=== PATIENT | male | born 1955 | race Hispanic/Latino ===

== ENCOUNTER 2016-08-14 08:30 | Emergency (ER) | payer MEDICAID ==
--- NOTE | 2016-08-14 09:03 | ER PHYSICIAN DOCUMENTATION ---
Physician Documentation [facility] Name:Jorge Gómez Age:61 yrs Sex:Male :1955 Arrival Date:08/14/2016 Time:08:30 Bed6 Private MD: Iggy Huerta Disposition: 08/14/16 08:55 Discharged to Home/Self Care. Impression: Bronchiolitis. - Condition is Good. - Discharge Instructions: BRONCHITIS, Abx Tx (Adult). - Prescriptions for Prednisone 20 mg Oral Tablet - take 2 tablet by ORAL route once daily for 5 days; 10 tablet. - Medical Reconciliation form form. - Follow up: Private Physician; When: 4- 6 days; Reason: Continuance of care. - Problem is new. - Symptoms have improved. HPI: 08/14 09:00 This 61 yrs old Male presents to ER via Walk In with complaints of Leg Pain - jm Left Leg Pain. 09:00 The patient presents with an abrasion. The complaints affect the left sims. Onset: The jm symptom(s)/episode began/occurred 2 week(s) ago. Pt banged his sims about 2 weeks ago and had some swelling there. He noticed that there was some bruising around his ankle and wanted to make sure he didn't have a blood blot. On an unrelated note, pt has a cough for 2 weeks that wont go away. No fever. No phloem . Historical: - Allergies: No known drug Allergies; - Home Meds: 1. None - PMHx: sinus infections; KIDNEY STONES; - PSHx: cystoscopy; urethral stent placement; LITHOTRIPSY; - Tetanus: > 10 years. - Ebola Screening: : Patient negative for fever greater than or equal to 101.5 degrees Fahrenheit, and additional compatible Ebola Virus Disease symptoms. Patient denies exposure to infectious person. Patient denies travel to an Ebola-affected area in the 21 days before illness onset. . - Immunization history: Flu Vaccine None. - Social history: Smoking status: Patient states was never smoker of tobacco. Patient uses marijuana. ROS: 09:00 Constitutional: Negative for fever. jm 09:00 Respiratory: Positive for cough, with no reported sputum. 09:00 MS/extremity: Positive for abrasion, ecchymosis, Negative for swelling, tenderness. 09:00 Skin: Positive for abrasion(s), Negative for swelling. Exam: 09:00 Constitutional: The patient appears alert, awake, comfortable. 09:00 Cardiovascular: Rate: normal, Rhythm: regular. 09:00 Respiratory: the patient does not display signs of respiratory distress, Respirations: normal, Breath sounds: are normal. 09:00 Musculoskeletal/extremity: Extremities: grossly normal except: noted in the left sims: abrasion, noted in the right lateral malleolus: ecchymosis, ROM: intact in all extremities, Weight bearing: able to fully bear weight. 09:00 Musculoskeletal/extremity: No pain around the deep venous system . 09:00 Skin: injury, healing scab on the L sims. . Vital Signs: 08:40 BP 133 / 94; Pulse 101; Resp 16; Temp 98.4(O); Pulse Ox 93% on R/A; Weight 81.65 kg; lp Height 5 ft. 6 in. (167.64 cm); Pain 3/10; 08:40 Body Mass Index 29.05 (81.65 kg, 167.64 cm) lp MDM: 08:45 Patient medically screened. 15:01 Differential diagnosis: abrasion. Data reviewed: vital signs, nurses notes, and as a jm result, I will discharge patient. Counseling: I had a detailed discussion with the patient and/or guardian regarding: the historical points, exam findings, and any diagnostic results supporting the discharge/admit diagnosis, the need for outpatient follow up, with the patient's primary care provider. ED course: Scab looks fine w dependant ecchymosis in the ankle. Pt's gaint is normal. No xray needed. Will send home w pred burst for bronchitis. . Dispensed Medications: No medications were administered Signatures: Rachel Whitfield, RN RN lp Iggy Sosa MD MD jm
--- NOTE | 2016-08-14 09:03 | ER NURSING DOCUMENTATION ---
Nurse's Notes [facility] Name:Jorge Gómez Age:61 yrs Sex:Male :1955 Arrival Date:08/14/2016 Time:08:30 Bed6 Private MD: Diagnosis:Bronchiolitis Presentation: 08/14 08:40 Presenting complaint: Patient states: L leg injury x 2 weeks ago. Transition of care: lp Home. 08:40 Acuity: ANIKET 3 lp 08:40 Method Of Arrival: Walk In lp Triage Assessment: 08:43 General: Appears in no apparent distress, well groomed, Behavior is appropriate for lp age, cooperative. Pain: Complains of pain in left sims. EENT: No deficits noted. Neuro: No deficits noted. Cardiovascular: No deficits noted. Respiratory: No deficits noted. Respiratory: Airway is patent Breath sounds are clear Reports cough that is non-productive, dry, since 2 months ago. GI: No deficits noted. : No deficits noted. Derm: No deficits noted. Musculoskeletal: Circulation, motion, and sensation intact Capillary refill < 3 seconds Swelling present in left sims. Historical: - Allergies: No known drug Allergies; - Home Meds: 1. None - PMHx: sinus infections; KIDNEY STONES; - PSHx: cystoscopy; urethral stent placement; LITHOTRIPSY; - Tetanus: > 10 years. - Ebola Screening: : Patient negative for fever greater than or equal to 101.5 degrees Fahrenheit, and additional compatible Ebola Virus Disease symptoms. Patient denies exposure to infectious person. Patient denies travel to an Ebola-affected area in the 21 days before illness onset. . - Immunization history: Flu Vaccine None. - Social history: Smoking status: Patient states was never smoker of tobacco. Patient uses marijuana. Screenin:45 Infectious Disease Risk None. Abuse screen: Denies threats or abuse. Denies injuries lp from another. Nutritional screening: No deficits noted. Assessment: 08:45 See Triage Assessment done by same RN. lp Vital Signs: 08:40 BP 133 / 94; Pulse 101; Resp 16; Temp 98.4(O); Pulse Ox 93% on R/A; Weight 81.65 kg; lp Height 5 ft. 6 in. (167.64 cm); Pain 3/10; 08:40 Body Mass Index 29.05 (81.65 kg, 167.64 cm) lp ED Course: 08:32 Patient arrived in ED. lm3 08:39 Rachel Whitfield, RN is Primary Nurse. lp 08:40 Triage completed. lp 08:45 Iggy Sosa MD is Attending Physician. jamia 08:[address] Sosa notified. lp 08:46 Valuables Remains with patient Patient has correct armband on for positive lp identification. Bed in low position. Call light in reach. Administered Medications: No medications were administered Outcome: 08:55 Discharge ordered by . jamia 09:02 Discharged to home Carried lp 09:02 Condition: stable 09:02 Instructed on discharge instructions, follow up and referral plans. medication usage. 09:02 Patient left the ED. lp 08/15 09:26 Discharge F/U Call: Unable to reach: no answer ke Signatures: Rachel Whitfield, RN RN Iggy Langston MD MD jm Evens, Kerry, RN RN Cailin Mattson lm3
== END 2016-08-14 09:03 | disposition home or self-care (01) ==
LOC: ER 08:30
DX: J21.8 Acute bronchiolitis due to other specified organisms (principal); S80.812A Abrasion, left lower leg, initial encounter; W22.8XXA Striking against or struck by other objects, initial encounter
CPT/HCPCS: 99281

== ENCOUNTER 2016-09-01 13:30 | Observation (INO) | payer MEDICAID ==
[2016-09-03] MEDS ORDERED: ceFAZolin 1 GM/10 ML VIAL ONE (06:48)
[2016-09-03] MEDS ORDERED: ceFAZolin 1 GM in NORMAL SALINE MINI-BAG+ 100 ML IV ONE ×2 (07:00→07:01)
[2016-09-03] MEDS ORDERED: SCOPOLAMINE 1.5 MG PATCH TD ONE ×2 (07:01→10:03)
[2016-09-03] MEDS ORDERED: MIDAZOLAM HCL 2 MG/2 ML SYR IV ONE (07:01)
[2016-09-03] MEDS ORDERED: LIDOCAINE HCL 1% 20 ML VIAL SUBCUT ONE ×2 (07:01→10:03)
[2016-09-03] MEDS ORDERED: LACTATED RINGERS 1,000 ML IV SCH ×4 (07:01→12:18)
[2016-09-03] MEDS: FAMOTIDINE IN SALINE, ISO-OSM 20 MG/50 ML PIGGYBACK IV SCH ×2 (07:04→12:47)
[2016-09-03] MEDS: ACETAMINOPHEN 1,000 MG/100 ML VIAL IV SCH ×2 (07:10→12:46)
[2016-09-03] MEDS ORDERED: ROCURONIUM BROMIDE 50 MG/5 ML VIAL IV ONE (07:15)
[2016-09-03] MEDS ORDERED: SUCCINYLCHOLINE CHLORIDE 200 MG/10 ML VIAL ONE (07:15)
[2016-09-03] MEDS ORDERED: MIDAZOLAM HCL 2 MG/2 ML VIAL ONE (07:15)
[2016-09-03] MEDS ORDERED: DEXAMETHASONE 10 MG/ML VIAL ONE (07:16)
[2016-09-03] MEDS ORDERED: ONDANSETRON HCL 4 MG/2 ML VIAL ONE (07:16)
[2016-09-03] MEDS ORDERED: FENTANYL 250 MCG/5 ML VIAL ONE (07:16)
[2016-09-03] MEDS ORDERED: KETOROLAC TROMETHAMINE 30 MG/ML VIAL ONE (07:17)
[2016-09-03] MEDS ORDERED: LIDOCAINE HCL 2% JELLY 1 APP/5 ML TUBE ONE (07:26)
[2016-09-03] MEDS ORDERED: LIDOCAINE HCL 2% 20 ML VIAL ONE (07:26)
[2016-09-03] MEDS ORDERED: ONDANSETRON HCL 4 MG/2 ML VIAL IV PRN (10:03)
[2016-09-03] MEDS ORDERED: HYDROmorphone HCL 1 MG/ML SYR IV PRN ×2 (10:03→12:18)
[2016-09-03] MEDS ORDERED: MORPHINE SULFATE 10 MG/ML SYR IV PRN (10:03)
[2016-09-03] MEDS ORDERED: FENTANYL 100 MCG/2 ML VIAL IV PRN (10:03)
[2016-09-03] MEDS ORDERED: HEMOSTATIC MATRIX 5 ML SYR MISC ONE (10:21)
[2016-09-03] MEDS ORDERED: BUPIVACAINE HCL/PF 0.25% 10 ML VIAL INJ ONE (10:53)
[2016-09-03] MEDS ORDERED: IBUPROFEN 600 MG TABLET PO PRN (12:18)
[2016-09-03] MEDS ORDERED: HYDROcodone/APAP 5/325 MG 1 TAB TABLET PO PRN (12:18)
--- NOTE | 2016-09-03 12:18 | OPERATIVE REPORT ---
DATE OF SURGERY: 09/03/16 SURGEON: Aram Saleem MD. ANESTHESIA: General endotracheal by Sven Domínguez CRNA. PREOPERATIVE DIAGNOSES 1. Incarcerated ventral hernia. 2. Left inguinal hernia. POSTOPERATIVE DIAGNOSES 1. Incarcerated ventral hernia. 2. Left inguinal hernia. PROCEDURE PERFORMED 1. Repair of incarcerated ventral hernia with mesh. 2. Repair of left inguinal hernia. FINDINGS: The ventral hernia had a sac of incarcerated omentum trapped within it. This was able to be reduced and the defect closed and a ProGrip type mesh repair was done over the top of this. The left inguinal hernia was a large direct hernia. There was a moderate amount of what appeared to be preperitoneal fat trapped within this and along with the colon. This was able to be all reduced and a Cristian type repair performed. The ilioinguinal nerve on the left side was sacrificed. SUMMARY: The patient was taken to the operating room and placed in the supine position. He was given a smooth induction of general anesthesia via endotracheal tube. Initially his abdomen was shaved and prepped with a ChloraPrep solution. Three minutes were allowed to elapse for the prep to dry. During this time a time out was called and the correct patient, correct preoperative medications and correct procedure were verified. When the 3 minutes had passed, the area was draped. A midline incision was marked that went around the umbilicus. Local was instilled in the form of 0.25 % Marcaine without epinephrine. The skin was sharply incised. Dissection was carried down to the hernia sac. It was dissected free from the surrounding tissues. The edges of the fascia were freed up and the fascia incised superiorly. This allowed reduction of the sac. Once the sac was reduced a running 2-0 PDS suture was used to close the fascial defect. A 10 x 15 cm piece of ProGrip mesh was brought in the field and it was cut to approximately 10 x 12 cm. The subcutaneous fatty tissues had been freed up from the fascia and then the ProGrip mesh was placed. When it was in a flat orientation a Michael-Bernardo drain was placed on top of it. The subcutaneous tissues were reapproximated with running 3-0 Vicryl. The skin was closed with running 3-0 nylon. The umbilicus was partially excised because it had been quite stretched out. A dressing was then applied. The drapes were taken down and attention was moved to the left inguinal region. The left inguinal region was shaved and then prepped with a ChloraPrep solution. Three minutes were allowed for the prep to dry. The area was then draped. The anterior iliac spine and pubic tubercle were then marked out. An approximately 10 cm incision was marked above this area using these connolly as landmarks for where the internal ring was. The skin was then sharply incised. Deeper dissection was done with the cautery. Dissection was carried down to the external oblique aponeurosis. The external ring was identified and the external oblique aponeurosis was opened through the external ring. The cord was then circumferentially controlled with a Spearfish drain. The direct defect was then reduced. This was held in place with retractors. Initially what appeared to be the inferior epigastric vessels were divided and tied off with 2-0 Vicryl sutures. Next, a round piece of Surgimesh was placed in the preperitoneal position and the area was held reduced by reapproximating the external oblique to Coopers ligament and transitioning to the inguinal ligament in as the suture was run laterally. This suture was tied down with the 10 cm round mesh underneath it. This held this area in reduction. There was some tension in the area so a relaxing incision was done through the external oblique and this area was then reinforced further. Next, the piece of ProGrip that remained was placed over this suture line. A Surgimesh cut in the fashion of a Cristian mesh was then brought in the field. It was sewn in place with 2-0 Prolene sewing the mesh to the inguinal ligament inferiorly. 2-0 PDS was used to tack the mesh to the surrounding tissues superiorly. The ilioinguinal nerve was divided sharply as it was in the region of this mesh. The 2 leaves of both meshes had been wrapped around the cord. These were tightened up with 2-0 Prolene sutures to make the size of the internal ring the size of my small finger. When adequate hemostasis had been achieved and the mesh was in good position, Floseal was placed on top and below the mesh. The external oblique aponeurosis was then closed with a running 3-0 Vicryl. The subcutaneous tissue was closed with running 3-0 Vicryl and the skin was closed with running subcuticular 4-0 Monocryl. Steri-Strips and a dressing were then applied. The patients anesthesia was reversed and this was moderately difficult as he thrashed around for about 5-10 minutes coming out of the anesthesia. Pressure was held on the ventral hernia repair during this but there was noticeably more blood coming out of the drain once he woke up. He was then brought to the PACU in stable condition and had otherwise tolerated the procedure well. ADI
[2016-09-03] MEDS: ONDANSETRON HCL 4 MG/2 ML VIAL IV PRN ×2 (12:55→16:30)
--- NOTE | 2016-09-03 14:08 | PROCEDURE NOTE: Gen Surgery ---
General Surgery Procedure Note - Date of Encounter Date of Encounter: 09/03/16 - Brief Operative Note (1) Unilateral inguinal hernia without obstruction or gangrene Date of procedure: 09/03/16 Pre-Op Diagnosis: same Post-op diagnosis: same Implants: mesh Anesthesia Type: General Pathology: none sent Sponge and instrument counts: correct Disposition: observation Narrative: Large direct defect repaired with a round 10cm mesh in the preperitoneal position and a essie ligament repair to hold this in reduction. A strip of progrip was used to bolster this suture line and a [place] type of repair was done over this. The ilioinguinal nerve was sacrificed. (2) Abdominal hernia with obstruction and without gangrene Date of procedure: 09/03/16 Pre-Op Diagnosis: same Post-op diagnosis: same Anesthesia Type: General Pathology: none sent Sponge and instrument counts: correct Condition: stable Disposition: observation Narrative: A large incarcerated hernia sac of omentum was trapped in a 4cm by 4cm hernia defect. The defect was closed and a 10cm by 12cm progrip mesh was placed over this.
[2016-09-04 05:33] LABS: HEMATOCRIT 47.3 % (42.0-54.0); HEMOGLOBIN 16.2 g/dL (14.0-18.0); MEAN CELL VOLUME 85.5 fL (80.0-100.0); MEAN CORPUS. HGB CONCENTRATION 34.2 g/dL (32.0-36.0); MEAN CORPUSCULAR HEMOGLOBIN 29.3 pg (29.0-35.0); MEAN PLATELET VOLUME 7.6 fL (7.4-10.4); PLATELET COUNT 235 X 10^3uL (130-440); RED BLOOD COUNT 5.53 X 10^6uL (4.20-6.10); RED CELL DISTRIBUTION WIDTH 12.4 % (11.5-14.5); WHITE BLOOD COUNT 13.8 X 10^3uL (3.9-10.7)
[2016-09-04 05:45] LABS: A/G RATIO 1.2; ALBUMIN 3.2 g/dL (3.5-5.0); ALKALINE PHOSPHATASE 61 U/L (38-126); ALT 34 U/L (21-72); AST 16 U/L (17-59); BILIRUBIN, TOTAL 0.9 mg/dL (0.2-1.3); BLOOD UREA NITROGEN 16 mg/dL (9-20); CALCIUM 8.5 mg/dL (8.4-10.2); CHLORIDE 107 mmol/L (98-107); CREATININE 1.2 mg/dL (0.7-1.3); EST GLOMERULAR FILTRATION RATE > 60 mL/min; GLUCOSE 97 mg/dL (70-100); MAGNESIUM 2.2 mg/dL (1.6-2.3); POTASSIUM 4.6 mmol/L (3.5-5.1); SODIUM 137 mmol/L (137-145); TOTAL PROTEIN 5.9 g/dL (6.3-8.2)
[2016-09-04] MEDS ORDERED: FEXOFENADINE HCL 180 MG TABLET PO SCH (09:00)
[2016-09-04] MEDS ORDERED: ZYRTEC PO SCH (09:00)
[2016-09-04] MEDS ORDERED: NON-FORMULARY MEDICATION (Dextroamphetamine/Amphetamine [Adderall 30 Mg Tablet] 30 MG) PO SCH (09:00)
[2016-09-04] MEDS: ACETAMINOPHEN 325 MG TABLET PO PRN ×2 (09:30→10:28)
--- NOTE | 2016-09-04 09:30 | DC SUMMARY: Gen Surgery Note ---
Discharge Summary: Surg/OB Provider: Date of Admission: 09/03/16 Admitting Provider: CHING BARAJAS MD Attending Provider: CHING BARAJAS MD Discharging Provider: CHING BARAJAS MD Primary Care Provider: Discharge Date: 09/04/16 - Diagnosis (1) Unilateral inguinal hernia without obstruction or gangrene Status: Resolved (2) Abdominal hernia with obstruction and without gangrene Status: Resolved Hospital Course: Mr. EMMANUEL is a 61 year old male Discharge - Patient/Caregiver Discharge Instructions Activity Level: No lifting over 20 pounds. Diet: Regular food Additional Instructions: Empty drain and record an approximate amount for each day. Follow up: CHING BARAJAS MD [ACTIVE (Staff Physician)] - 7 Days Home Medications: oxyCODONE HCL IR [Oxy Ir*] 5 - 10 mg PO Q3H PRN #30 tablet PRN Reason: Pain, Severe Able To Take Po Disposition: HOME, SELF-CARE 1. Medical reason for no anticoagulation order on D/C?: Treatment not indicated 2. Medical reason for no anticoag overlap on D/C?: Treatment not indicated Gen Surgery: Discharge Exam - Latest Vital Signs and I&O Latest Vital Signs/I&O: Vital Signs Temp 36.4 C 09/04/16 05:36 Pulse 76 09/04/16 05:36 Resp 14 09/04/16 05:36 BP 100/68 09/04/16 05:36 Pulse Ox 93 09/04/16 05:36 Intake & Output 09/03/16 09/04/16 09/04/16 17:59 05:59 17:59 Intake Total 1850 1050 Output Total 45 1430 Balance 1805 -380 Weight 83.915 kg 80.558 kg Intake: IV 1800 Right Hand 1800 Oral 50 1050 Output: Drainage 45 30 Right Lower Abdomen 45 30 Urine 0 1400 Other: Urine Appearance Clear Urine Color Yellow Voiding Method Toilet Urinal - Exam Respiratory exam: clear to auscultation Abdomen exam: bowel sounds (hypoactive), wound (some erythema in the region of the umbilicus.) Left: tender (swollen post op) Discharge Summary Data - Medication History Medication History: Home Medications Zyrtec 1 tab PO DAILY 09/01/16 Acetaminophen [Tylenol X-Strength] 500 mg PO QID PRN 09/03/16 Dextroamphetamine/Amphetamine [Adderall 30 mg Tablet] 30 mg PO DAILY 09/03/16 Inpatient Medications 09/03/16 12:18 Acetaminophen [Tylenol] 650 mg PO Q6H PRN HYDROcodone/APAP 5/325 MG [Halfway] 1 tab PO Q4H PRN HYDROmorphone HCL [dilaUDID] 1 - 2 mg IV Q1H PRN Ibuprofen [Motrin] 600 mg PO Q6H PRN Lactated Ringers [Lr 1000 ml Bag] 1,000 ml IV CONT Ondansetron HCl [Zofran] 4 mg IV Q4H PRN 09/03/16 15:34 oxyCODONE HCL IR [Oxy Ir] 5 - 10 mg PO Q3H PRN 09/04/16 09:00 Dextroamphetamine/Amphetamine [Adderall 30 mg Tablet] 30 mg PO DAILY Fexofenadine HCl [Tamiko] 180 mg PO DAILY Procedures and tests throughout hospitalization: Completed Lab Orders 09/04/16 05:00 CBC WITHOUT A DIFFERENTIAL [HEM] AMDRAW MAGNESIUM [CHEM] AMDRAW cmp [COMPREHENSIVE METABOLIC PANEL] [CHEM] AMDRAW Pending Orders 09/02/16 15:18 Anesthesia Type . Insert Peripheral IV ONCE NPO After midnight 0000 Pre-op by anesthesia . Sequential Compression Device WHILE IN BED 09/03/16 07:01 Anesthesia Type . Insert Peripheral IV ONCE 09/03/16 10:03 Emma hugger if temp <34 C PRN Notify Anesthesia . Warm blankets if temp<36 C PRN 09/03/16 12:18 Admit: Observation Routine Activity: As Tolerated PRN Dressing Change PRN Insert Vega Catheter - PRN PRN Sequential Compression Device WHILE IN BED Titrate Oxygen TITRATE TO >90% Vital Signs Q4H Acetaminophen [Tylenol] 650 mg PO Q6H PRN HYDROcodone/APAP 5/325 MG [Halfway] 1 tab PO Q4H PRN HYDROmorphone HCL [dilaUDID] 1 - 2 mg IV Q1H PRN Ibuprofen [Motrin] 600 mg PO Q6H PRN Lactated Ringers [Lr 1000 ml Bag] 1,000 ml IV CONT Ondansetron HCl [Zofran] 4 mg IV Q4H PRN 09/03/16 12:44 Resuscitation Status Routine 09/03/16 15:31 Buff cap IV .W/GOOD PO Empty and compress JUDAH Drain PRN 09/03/16 15:34 oxyCODONE HCL IR [Oxy Ir] 5 - 10 mg PO Q3H PRN 09/03/16 20:00 Transfer to Floor PER PROTOCOL 09/03/16 Lunch Regular [DIET] 09/04/16 08:00 Transfer to Floor PER PROTOCOL 09/04/16 09:00 Dextroamphetamine/Amphetamine [Adderall 30 mg Tablet] 30 mg PO DAILY Fexofenadine HCl [Tamiko] 180 mg PO DAILY Labs on day of discharge: Labs from last 24 hours 09/04/16 05:00 WBC 13.8 H RBC 5.53 Hgb 16.2 Hct 47.3 MCV 85.5 MCH 29.3 MCHC 34.2 RDW 12.4 Plt Count 235 MPV 7.6 Sodium 137 Potassium 4.6 Chloride 107 Carbon Dioxide 24 BUN 16 Creatinine 1.2 GFR Calculation > 60 Glucose 97 Calcium 8.5 Magnesium 2.2 Total Bilirubin 0.9 AST 16 L ALT 34 Alkaline Phosphatase 61 Total Protein 5.9 L Albumin 3.2 L Albumin/Globulin Ratio 1.2
[2016-09-04 11:15] VITALS: BP 115/79; PULSE 86; RESP 16; TEMP 98.3; O2SAT 91
--- NOTE | 2016-09-10 14:47 | PREOPERATIVE H&P ---
Patient words: Here for pre op eval prior to hernia surgery. The patient is a 61 year old male for a pre-op physical. Inguinal hernia is described as the following: The hernia is located on the left side. Symptoms include inguinal bulge and inguinal pain. The pain is located in the left inguinal area. The pain radiates to the left inguinal area. Onset was gradual. The episodes occur daily. The patient describes this as moderate in severity. The patient is not currently being treated for this problem. Umbilical hernia is described as the following: This hernia is thought to be acquired. Symptoms include bulge at the umbilicus, abdominal mass and abdominal pain. The pain is located in the mid-abdomen. The patient describes the pain as sharp and dull. The patient describes this as moderate in severity and worsening. Current treatment includes manual reduction. Allergies (Lora Vieria RN; 09/01/2016 1:58 PM) No Known Drug Allergies Medication History (Lora Vieira RN; 09/01/2016 1:58 PM) Adderall (30MG Tablet, 1 Tablet Oral QAM, Taken starting 08/18/2016) Active. Medications Reconciled Review of Systems (Aram Saleem M.D.; 09/01/2016 2:22 PM) General Present- Feeling well. Skin Not Present- Bruising. HEENT Present- Allergies. Neck Not Present- Neck Pain. Respiratory Not Present- Lung Problems. Cardiovascular Not Present- Heart Problems. Gastrointestinal Not Present- Constipation and Diarrhea. Male Genitourinary Present- Kidney Stones. Not Present- Prostatitis. Neurological Not Present- Neurological Problems. Endocrine Not Present- Diabetes and Thyroid Problems. Hematology Not Present- Anemia and Blood Clots. Vitals (Lora Vieira RN; 09/01/2016 2:04 PM) 09/01/2016 2:01 PM Weight: 193 lb Height: 66in Body Surface Area: 1.97 m Body Mass Index: 31.15 kg/m Temp.: 96.9F(Temporal) Pulse: 98 (Regular) Resp.: 14 (Unlabored) P.OX: 90% (Room air) BP: 118/76 (Sitting, Left Arm, Standard) Physical Exam (Aram Saleem M.D.; 09/01/2016 2:28 PM) General Mental Status-Alert. General Appearance-Not Anxious. Orientation-Oriented X3. Head and Neck Neck Normal Exam - No Lymphadenopathy, No Thyromegaly. Chest and Lung Exam Chest and lung exam reveals -Clear. Cardiovascular Cardiovascular examination reveals -RRR, No murmurs present. Abdomen Inspection Inspection of the abdomen reveals - Soft and Non-tender. Hernias - Direct umbilical hernia - Reducible. Note: Proximally 3 cm and there may be more than one defect. Direct Right Inguinal - Non-reducible. Note: This is a very large defect on the left and I would guess it's probably a direct and indirect defect. This goes down into his scrotum. There is a well-healed incision in the right inguinal region and I do not feel a hernia defect on this side. Contour - Generalized moderate distention. Peripheral Vascular Lower Extremity Palpation - Edema - Bilateral - No edema. Assessment & Plan (Aram Saleem M.D.; 09/01/2016 2:44 PM) Ventral hernia (K43.9) Current Plans MESH FOR REPAIR OF VENTRAL OR INCISIONAL REJI (18424) RPR INTL INCSNL/VNTRL HERNIA MARY (97210) Pt Education - Dr Saleem's Post Op Instructions: discussed with patient and provided information. Hernia, inguinal, left (K40.90) Current Plans INITIAL REPAIR OF REDUCIBLE INGUINAL,5+YRS (23885) Started OxyCODONE HCl 5MG, 1 (one) Capsule every six hours, as needed, #20, 07/2016, No Refill. Local Order: He has the meds at home from his kidney stone. Note:The risks of wound infection, bleeding, hernia recurrence and chronic pain were discussed. We briefly discussed the anesthetic choices and noted that this could be more thoroughly reviewed with the 21 dealer. Post op instructions were provided. A script for oxycodone was given to him. Informed consent was obtained in the office. Signed by Aram Saleem M.D. (09/01/2016 2:45 PM) ADI
== END 2016-09-04 09:43 | disposition home or self-care (01) ==
LOC: IN 09-03 06:25
PROVIDERS: ADMIT Surgery; ATTEND Surgery
DX: K43.9 Ventral hernia without obstruction or gangrene (principal); K40.90 Unilateral inguinal hernia, without obstruction or gangrene, not specified as recurrent; F68.8 Other specified disorders of adult personality and behavior; Z79.899 Other long term (current) drug therapy
CPT/HCPCS: 36415; 80053; 83735; 85027; 94667; 96375; 96376; C1781; G0378; G0379; J0690; J1100; J1170; J1885; J2250; J2405; J7120